=== PATIENT | male | born 1960 | race Caucasian/White ===

== ENCOUNTER → 2017-04-03 | Outpatient (CLI) | payer BC ==
--- NOTE | 2017-04-03 22:50 | MR ---
EXAMINATION TYPE: MR lumbar spine wo con DATE OF EXAM: 04/03/2017 COMPARISON: NONE HISTORY: 56-year-old male with lumbar Pain TECHNIQUE: Multiplanar, multisequence images of the lumbar spine were acquired. FINDINGS: Vertebral body heights are preserved and alignment is maintained. There is a transitional lumbosacral segment which will be denoted as a sacralized L5. Variable mild disc desiccation within the lower lumbar spine and mild facet arthropathy. Fatty matrix hemangioma within the L4 vertebral body. No suspicious bone marrow replacement. Conus medullaris is normal. At T12-L1, there is very mild posterior broad-based disc protrusion without spinal canal or neurofora bobby stenosis. A tiny right paracentral annular fissure is present. At L1-L2, no spinal canal or foraminal stenosis. At L2-L3, no spinal canal or foraminal stenosis. At L3-L4, there is minimal diffuse disc bulging. Disc material closely approaches the traversing left L4 nerve root, sagittal image 7. No significant spinal canal or foraminal stenosis. Mild facet degen erative change. At L4-L5, there is facet degenerative change and diffuse disc bulge with a small posterior annular fi ssure. Changes cause moderate right and mild left neuroforaminal stenosis. Disc material approaches a nd may abut the traversing right L5 nerve root, sagittal image 11. No spinal canal stenosis. At L5-S1, no spinal canal or foraminal stenosis. Cysts within the left kidney measuring up to 3.6 cm. No prevertebral or paravertebral soft tissue abn ormality seen. IMPRESSION: 1. Transitional lumbosacral segment is denoted as a sacralized L5. 2. Mild degenerative disc disease and facet arthropathy within the lower lumbar spine. There is a tin y right paracentral annular fissure at T12-L1 and centrally at L4-L5 3. At L4-L5, changes result in moderate right and mild left neuroforaminal stenosis with disc materia l approaching and abutting the traversing right L5 nerve root. 4. At L3-L4, disc material closely approaches the traversing left L4 nerve root without clear nerve r oot impingement. 5. No canal compromise.
== END ==
LOC: RADMRIMAIN 15:23
PROVIDERS: ATTEND Family Medicine
DX: M99.73 Connective tissue and disc stenosis of intervertebral foramina of lumbar region (principal); M51.36 Other intervertebral disc degeneration, lumbar region; M46.86 Other specified inflammatory spondylopathies, lumbar region
CPT/HCPCS: 72148

== ENCOUNTER → 2018-01-21 | Outpatient (CLI) | payer OTHER ==
--- NOTE | 2018-01-21 18:24 | CT ---
EXAMINATION TYPE: CT abdomen pelvis w con DATE OF EXAM: 01/21/2018 COMPARISON: NONE HISTORY: Diverticulitis of large intestine CT DLP: 1663.7 mGycm Automated exposure control for dose reduction was used. TECHNIQUE: Helical acquisition of images was performed from the lung bases through the pelvis. CONTRAST: Performed with Oral Contrast and with IV Contrast, patient injected with 100ml mL of Isovue 300. FINDINGS: There is mild subsegmental atelectasis at the lung bases. Heart is top normal in size. There is no pe ricardial effusion. There is no pleural effusion. Liver spleen pancreas gallbladder appear normal. Bile ducts are not dilated. There is no adrenal mass . Kidneys show satisfactory contrast opacification. There is no hydronephrosis. There are 2 cysts in the lower pole of the left kidney. The largest measures 4 cm. There is no retroperitoneal adenopathy . There is no ascites. There are a few diverticula in the descending colon and sigmoid colon. I see n o inflammatory changes to suggest diverticulitis. Bladder distends smoothly. There are prostatic calc ifications. Prostate is enlarged and measures 5 cm. The appendix appears normal. I see no bony destructive process. IMPRESSION: NO EVIDENCE OF DIVERTICULITIS. LEFT RENAL CORTICAL CYSTS. MILD TO MODERATE DIVERTICULOSIS OF THE DESCENDING COLON AND SIGMOID COLON. NORMAL APPENDIX. THERE IS PROBABLY CARDIOMEGALY.
== END | disposition home or self-care (01) ==
LOC: RADCTMAIN 16:06
PROVIDERS: ATTEND Surgery
DX: K57.30 Diverticulosis of large intestine without perforation or abscess without bleeding (principal); N28.1 Cyst of kidney, acquired
CPT/HCPCS: 74177; Q9967

== ENCOUNTER → 2018-05-06 | Outpatient (CLI) | payer OTHER ==
--- NOTE | 2018-05-06 16:34 | PN ---
PROGRESS NOTE Payam is a 57, coming in for followup regarding his SRINATH. I diagnosed this patient having obstructive sleep apnea back in 2016. At that time, the patient had moderate to severe disease with an AHI of 27. I gave him a CPAP pressure of 9 cm of water. I subsequently checked his compliancy and his compliancy was suboptimal and this was attributed to chronic allergic rhinitis and nasal congestion. At same time, he is a stomach breather and he was unable to get himself comfortable with the mask interface. Based on all this, I kept him on a CPAP pressure of 9 cm of water. I offered him the DreamWear nose mask and I lowered the pressure down to 7 cm of water. He was supposed to come back and see me in follow up. Subsequently the patient started getting bills due to his suboptimal compliance on his CPAP machine and he ended up returning back his CPAP machine and he was labeled as a failed study. Over the past 2 years he has not been using his CPAP. He has gained around 10 pounds. He has retired and he has become more symptomatic and he is requesting his CPAP machine back. He is very symptomatic, drowsy and sleepy during the day. He thinks that part of his suboptimal compliance was by the fact that he was working 16 to 17 hours a day and he had limited time to sleep and this also contributed to his low number of CPAP use. At this point in time, the patient seems to be very committed and he wants to utilize a CPAP machine back and for that reason, he is coming in for a followup. No other new complaints. He has snoring. His sleep is fragmented and he is waking up on multiple occasions throughout the night in addition to obstructive sleep apnea. He is taking [place] for chronic pain. He is still on Adderall. No other new complaints otherwise for now. REVIEW OF SYSTEMS: CONSTITUTIONAL: Positive for 10 pounds weight gain. HEENT: Chronic rhinitis, nasal congestion and postnasal drainage. CARDIOVASCULAR: No angina, no palpitations. No chest pain. PULMONARY: As above. GI: Negative for nausea, vomiting, abdominal pain or GI bleed. : Negative for dysuria, frequency, urgency. MUSCULOSKELETAL: Chronic pain. SKIN: Negative for any wounds or ulcers. NEUROLOGICAL: Has chronic drowsiness and sleepiness. PHYSICAL EXAMINATION: BP is 140/80, pulse 76, respirations 16, temperature 98.3, saturation 95% on room air. Weight is 235, height is 6-0, neck size 16.5 inches. GENERAL APPEARANCE: Calm, comfortable. Head is atraumatic, normocephalic. Neck is short, supple. Crowding of posterior pharynx. There is no goiter or neck masses. LUNGS: Diminished breath sounds bilaterally, otherwise clear. HEART: Sounds regular rhythm. Normal S1, S2. No S3. No murmurs. ABDOMEN: Soft, nontender. No organomegaly. EXTREMITIES: No edema. No cyanosis or clubbing. IMPRESSION: 1. Obstructive sleep apnea moderate in severity. AHI of 27, based on a sleep study that was done 2015. 2. Suboptimal compliancy on CPAP. The patient ended up losing his CPAP machine and the machine was returned a few months after his study. 3. Chronic hypersomnia. [place] score of 19. The patient is symptomatic at this time. This is essentially attributed to his obstructive sleep apnea. 4. Chronic pain. Currently on [place]. PLAN: The patient will be asked to come back to Sleep Center to undergo a CPAP titration. CPAP titration will be needed to order this patient and set him up with a new CPAP unit. The patient will be given a DreamWear nose mask knowing that this has been his mask of choice. The patient will be encouraged to lose weight knowing that he has gained around 10 pounds. He will see me back immediately after the CPAP titration to make further adjustments if needed and will continue monitoring his outcome and compliancy. I suspected the outcome of treatment will be better knowing that the patient is currently retired and he has more time to sleep and at the same time he seems to be much more committed knowing that he has become more symptomatic. Restart Flonase for nasal congestion and postnasal drainage. MMODL / IJN: [id number] /
== END | disposition home or self-care (01) ==
LOC: SLEEP 14:55
PROVIDERS: ATTEND Internal Medicine Critical Care Medicine
DX: G47.33 Obstructive sleep apnea (adult) (pediatric) (principal); G89.29 Other chronic pain; Z79.891 Long term (current) use of opiate analgesic; Z99.89 Dependence on other enabling machines and devices

== ENCOUNTER → 2018-10-07 | Outpatient (CLI) | payer OTHER ==
--- NOTE | 2018-10-07 17:49 | PN ---
PROGRESS NOTE DATE OF SERVICE: 10/07/2018 58-year-old gentleman has been followed in Sleep Center for treatment of obstructive sleep apnea-hypopnea syndrome. The patient came for followup visit. Recently patient had a split night sleep study which showed that he has severe obstructive sleep apnea and after that he was started on treatment with CPAP and today is his first visit after he received his CPAP unit. Right after getting his CPAP unit, patient was not able to use it because [place]. In this month at the beginning of the month, the patient had upper respiratory infection, so he also was not able to use machine for several weeks. With the machine, patient feels better and sleeps better. I discussed results of sleep study with patient in detail. I checked his CPAP unit. CPAP pressure is 9 cm of water. Last night, patient used it for 10 hours. Patient used it for 34 nights out of 90 nights and 26 out of 90 nights more than 4 hours. Average usage is 7.3 hours. Pressure in the machine is 9 cm of water. Leak is only 8 L/minute which is normal. Apnea-hypopnea index for the 3 months 3.8, and for the 1 month only 2.0, which is absolutely perfect. [place] Sleepiness Scale today is 17 still indicates some sleepiness. PHYSICAL EXAM: Patient in no distress BP 159/96, HR 77, RR 16, weight 257.4, temperature 98.1. The oropharynx, Mallampati 4. HEENT PERRLA, EOMI, evaluation of oropharynx showed tongue protrudes midline. Low position of soft palate. Neck Supple, no JVD. Thyroid is not palpable. LUNGS Clear to percussion and to auscultation. Good air exchange. No wheezing or rhonchi. HEART S1, S2 regular. No murmurs, gallops, or rubs. ABDOMEN Soft and nontender. Bowel sounds are present. No organomegaly appreciated. EXTREMITIES No clubbing or cyanosis. JAVA SWING DEVELOPER Awake, alert, and oriented X3. Cranial nerves 2 to 7 intact. There is no fasciculation or atrophy. noted. No focal deficits observed. IMPRESSION: 1. Severe obstructive sleep apnea-hypopnea syndrome; apnea-hypopnea index 42.7. Presently patient is able to use CPAP equipment during the night. 2. History of bipolar. 3. History of back pain on treatment with [place]. PLAN: 1. Patient will continue to use CPAP equipment every night for the whole night with the same regimen of the pressure. Patient promised to follow recommendation and continue treatment every night. 2. Watching and losing weight. 3. Sleep hygiene with regular time in bed for at least 8 hours. 4. No driving if feeling sleepiness. 5. We may extend trial period with a new machine for another 90 days. Thank you very much for allowing me to participate in management of your patient. Sincerely, Efrain Khoury MD, PhD, FAASM Diplomat of [place] [employer] [place] [employer] Console Manager of [facility] [place] MMODL / IJN: [id number] /
== END ==
LOC: SLEEP 16:37
PROVIDERS: ATTEND Internal Medicine
DX: G47.33 Obstructive sleep apnea (adult) (pediatric) (principal); M54.5 Low back pain; Z79.899 Other long term (current) drug therapy; Z86.59 Personal history of other mental and behavioral disorders; Z99.89 Dependence on other enabling machines and devices

== ENCOUNTER → 2019-07-13 | Outpatient (CLI) | payer OTHER ==
--- NOTE | 2019-07-13 18:45 | P.STRESS ---
- Stress Test Note Stress Test Results/Findings: Exam Performed: stress test Exam Date: 07/13/19 Reason for Exam: SOB/HTN Height: 6 ft 2 in Weight: 115.212 kg Protocol: MARIO Stage: 3 Duration of Exercise: 8:30 MINUTES Resting Heart Rate: 68 Resting Blood Pressure: 162/95 Maximum Achieved Heart Rate: 121 Maximum Achieved Blood Pressure: 216/94 85% PMHR: 137 100% PMHR: 161 METS: 10.1 Technologist Comment: Stress Test Results/Findings: This is a 58-year-old gentleman with history of hypertension and smoking being evaluated for stent symptoms of shortness of breath. Stress data: Patient EKG showed sinus rhythm with normal [place], QRS duration. Blood pressure at rest is 162/95 with pulse rate of 68. Patient walked on the Mario protocol for 8 minutes and 30 seconds achieving a maximum heart rate of 121 with a blood pressure 216/94. The test was stopped because of fatigue and tiredness and also shortness of breath. EKGs taken during and after exercise did not reveal any changes to suggest ischemia. Final impression: #1. Inconclusive stress test as patient did not achieve 85% predicted heart rate. #2. The test was stopped because of shortness of breath and fatigue #3. Patient complained of some shortness of breath and chest pain not associated with any EKG changes #4. If indicated, a Lexiscan nuclear stress test may be considered for further evaluation
--- NOTE | 2019-07-13 19:36 | ECHOF ---
Referral Reason:R07.89 atypical chest pain MEASUREMENTS -------- HEIGHT: 188.0 cm WEIGHT: 115.2 kg BP: RVIDd: 3.7 cm (< 3.3) IVSd: 1.2 cm (0.6 - 1.1) LVIDd: 5.4 cm (3.9 - 5.3) LVPWd: 1.6 cm (0.6 - 1.1) IVSs: 1.6 cm LVIDs: 3.5 cm LVPWs: 1.9 cm LA Diam: 4.2 cm (2.7 - 3.8) LAESV Index (A-L): 42.96 ml/m Ao Diam: 3.7 cm (2.0 - 3.7) AV Cusp: 2.6 cm (1.5 - 2.6) LA Diam: 4.3 cm (2.7 - 3.8) MV EXCURSION: 23.818 mm (> 18.000) MV EF SLOPE: 109 mm/s (70 - 150) EPSS: 0.4 cm MV E Jan: 0.68 m/s MV DecT: 198 ms MV A Jan: 0.90 m/s MV E/A Ratio: 0.76 AR PHT: 463 ms RAP: 5.00 mmHg RVSP: 33.46 mmHg TAPSE: 25.97 mm FINDINGS -------- Sinus rhythm. This was a technically adequate study. The left ventricular size is normal. There is mild concentric left ventricular hypertrophy. Overa ll left ventricular systolic function is normal with, an EF between 55 - 60 %. The right ventricle is normal in size. The left atrial size is normal. Normal LA size by volume 22+/-6 ml/m2. The right atrial size is normal. The aortic valve is trileaflet, and appears structurally normal. No aortic stenosis or regurgitation. Mild mitral annular calcification present. Mild mitral regurgitation is present. Mild tricuspid regurgitation present. Right ventricular systolic pressure is normal at < 35 mmHg. There is mild pulmonary hypertension. There is no pulmonic regurgitation present. The aortic root size is normal. There is no pericardial effusion. CONCLUSIONS -------- 1. Sinus rhythm. 2. This was a technically adequate study. 3. The left ventricular size is normal. 4. There is mild concentric left ventricular hypertrophy. 5. Overall left ventricular systolic function is normal with, an EF between 55 - 60 %. 6. The right ventricle is normal in size. 7. The left atrial size is normal. 8. Normal LA size by volume 22+/-6 ml/m2. 9. The right atrial size is normal. 10. The aortic valve is trileaflet, and appears structurally normal. No aortic stenosis or regurgitat ion. 11. Mild mitral annular calcification present. 12. Mild mitral regurgitation is present. 13. Mild tricuspid regurgitation present. 14. Right ventricular systolic pressure is normal at < 35 mmHg. 15. There is mild pulmonary hypertension. 16. There is no pulmonic regurgitation present. 17. The aortic root size is normal. 18. There is no pericardial effusion. LAND MANAGER: Antonina Duarte RDCS
--- NOTE | 2019-07-14 09:11 | EST ---
Stress Test Results/Findings: Exam Performed: stress test Exam Date: 07/13/19 Reason for Exam: SOB/HTN Height: 6 ft 2 in Weight: 115.212 kg Protocol: MARIO Stage: 3 Duration of Exercise: 8:30 MINUTES Resting Heart Rate: 68 Resting Blood Pressure: 162/95 Maximum Achieved Heart Rate: 121 Maximum Achieved Blood Pressure: 216/94 85% PMHR: 137 100% PMHR: 161 METS: 10.1 Technologist Comment: Stress Test Results/Findings: This is a 58-year-old gentleman with history of hypertension and smoking being evaluated for stent symptoms of shortness of breath. Stress data: Patient EKG showed sinus rhythm with normal [place], QRS duration. Blood pressure at rest is 162/95 with pulse rate of 68. Patient walked on the Mario protocol for 8 minutes and 30 seconds achieving a maximum heart rate of 121 with a blood pressure 216/94. The test was stopped because of fatigue and tiredness and also shortness of breath. EKGs taken during and after exercise did not reveal any changes to suggest ischemia. Final impression: #1. Inconclusive stress test as patient did not achieve 85% predicted heart rate. #2. The test was stopped because of shortness of breath and fatigue #3. Patient complained of some shortness of breath and chest pain not associated with any EKG changes #4. If indicated, a Lexiscan nuclear stress test may be considered for further evaluation MTDD
== END | disposition home or self-care (01) ==
LOC: RADNMMAIN 10:40
PROVIDERS: ATTEND Family Medicine
DX: I08.1 Rheumatic disorders of both mitral and tricuspid valves (principal); I27.20 Pulmonary hypertension, unspecified; R07.89 Other chest pain
CPT/HCPCS: 93017; 93306

== ENCOUNTER → 2020-09-12 | Outpatient (CLI) | payer MEDICARE ==
--- NOTE | 2020-09-12 15:20 | PN ---
PROGRESS NOTE Payam is a 58-year-old male patient, a long-time CPAP user for obstructive sleep apnea. Currently he is using his CPAP, which is a ResMed AutoSet unit set at a pressure of 9 cm of water. This is a 3 year followup for him. He is doing well. He is utilizing his machine every night. No issues with his CPAP unit whatsoever. He is averaging around 6.9 hours of CPAP use per night and his CPAP use for more than 4 hours is around 70%. His leak is at 7 L and the patient utilizing a Dream Wear under the nose medium- sized nose mask. AHI while on treatment is down to 0.9. No new onset cardiac disease. No new onset CHF or atrial fibrillation or any other neurologic or cardiovascular disease. Weight has been stable. REVIEW OF SYSTEMS: Fourteen-point review of system was done and positive findings are mentioned in history of present illness. GENERAL APPEARANCE: Calm and comfortable in no acute distress. Head is atraumatic, normocephalic. NECK: Supple. There is no JVD. No goiter or neck mass. Mallampati class 4. LUNGS: Clear to auscultation. HEART: Heart sounds are regular rate and rhythm. Normal S1, S2. No S3, no S4, no murmurs. ABDOMEN: Soft. Nontender. No organomegaly. EXTREMITIES: No edema, cyanosis or clubbing. NEUROLOGIC: The patient is awake, alert, and there is no focal neurological deficits. PSYCHIATRIC: Negative for anxiety or depression. IMPRESSION: 1. Obstructive sleep apnea, successfully treated with a CPAP pressure of 9 cm of water. Treatment has been successful and the patient has no issues. Note that the patient has severe SRINATH with an AHI of 42.7 at baseline. 2. Hypersomnia, recovered. 3. History of bipolar disorder. 4. Chronic back pain. PLAN: 1. Continue CPAP at same level of pressure which is 9 cm of water. 2. Renew supplies including a Dream Wear under the nose mask, medium size. 3. Encourage weight loss. 4. Watch the patient's sleep hygiene and maintain a regular bedtime and sleep for at least 8 hours. 5. No driving especially when feeling drowsy or sleepy. 6. See me back in the office in a few years time for followup. MMODL / IJN: [id number] /
== END | disposition home or self-care (01) ==
LOC: SLEEP 14:03
PROVIDERS: ATTEND Internal Medicine Critical Care Medicine
DX: G47.33 Obstructive sleep apnea (adult) (pediatric) (principal); G89.29 Other chronic pain; Z86.59 Personal history of other mental and behavioral disorders; Z99.89 Dependence on other enabling machines and devices

== ENCOUNTER → 2021-04-02 | Outpatient (CLI) | payer MEDICARE, OTHER ==
[2021-04-02 12:33] VITALS: BP 151/82; PULSE 63; RESP 18; TEMP 98.5
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
== END ==
LOC: PNWHC3 12:16
PROVIDERS: ATTEND Specialist
DX: M51.36 Other intervertebral disc degeneration, lumbar region (principal); M47.816 Spondylosis without myelopathy or radiculopathy, lumbar region; J44.9 Chronic obstructive pulmonary disease, unspecified; I10 Essential (primary) hypertension; M19.90 Unspecified osteoarthritis, unspecified site; F17.200 Nicotine dependence, unspecified, uncomplicated; K21.9 Gastro-esophageal reflux disease without esophagitis; Z79.899 Other long term (current) drug therapy; Z79.51 Long term (current) use of inhaled steroids
CPT/HCPCS: 99211

== ENCOUNTER 2021-04-20 07:43 | Day surgery (SDC) | payer MEDICARE, OTHER ==
[2021-04-19 09:03] VITALS: BMI 35.0
[2021-04-20 08:05] VITALS: RESP 18; TEMP 97.2
[2021-04-20] MEDS ORDERED: IOPAMIDOL M200 10 ML VIAL ONE (08:22)
[2021-04-20] MEDS ORDERED: TRIAMCINOLONE ACETONIDE 40 MG/ML 1 ML VIAL ONE (08:22)
[2021-04-20] MEDS ORDERED: ROPIVACAINE 5MG/ML 20ML VIAL ONE (08:22)
--- NOTE | 2021-04-20 08:34 | P.PCN ---
Date of Procedure: 04/20/21 Description of Procedure: PREOPERATIVE DIAGNOSIS : Lumbar spondylosis with Facet Arthropathy without myelopathy POSTOPERATIVE DIAGNOSIS: same PROCEDURE: first Diagnostic lumbar medial branch block with fluoroscopy at L3, L4, L5 [bilateral] which covers facets L4-5 and L5-S1 ANESTHESIA: Local anesthetic; Fluoroscopy was used for the procedure and images were saved in the radiology portion of the chart. Surgeon: Alfredo Haynes MD PROCEDURE INDICATION: Lumbar back pain without radiculopathy, not responsive to conservative management. PROCEDURE DESCRIPTION: the patient was seen and identified in the preop holding area , risks and benefits and possible complications of the procedure and alternatives were discussed with the patient, and the patient agreed to proceed with the procedure and signed the consent . IV was started , vital signs were monitored during the procedure and fluoroscopy was used to maximize the benefit and accuracy of the needle placement, and sedation was given to decrease patient anxiety. Patient was taken to the procedure room and placed in prone position. The lumbar region was prepped using chlorhexidineX-2. Under strict sterile technique using AP fluoroscopy the bilateral sacral ala were identified and using ipsilateral oblique fluoroscopy ,the junction of the transverse process and the superior articulating process of the L4, L5 vertebra which corresponds to the fluoroscopy image of the eye of the Dejuan dog for the medial branches were identified. Subsequently, after local infiltration of skin with lidocaine 1% 0.2 mL at each level , a 25-gauge 3.5" Quincke-type needle was placed at the junction of the base of the transverse process and the superior articular process at the appropriate level as well as the sacral ala, and the needle was advanced until the periosteum contacted, needle placement confirmed with AP and oblique fluoroscopy, 0.2 mL of Isovue 200 per level was injected which revealed no vascular uptake and after negative aspiration. I cate up 5 mL of 0.5% ropivacaine and 1 mL of 40 mg/mL kenalog and injected 1 mL of this injectate at each level and the needle subsequently removed . A total of [2 levels injected bilaterally] At the end of the procedure and the needles were removed and a bandage applied after the skin was cleaned. The patient was taken to recovery room in stable condition and monitors in the recovery room for 20-30 minutes and discharged home in stable condition after discharge criteria met and patient will follow up with repeat procedure in 2 weeks EBL: Minimal COMPLICATION: None.
--- NOTE | 2021-04-20 08:45 | FL ---
Fluoroscopy INDICATION: Pain FINDINGS: Fluoroscopy time: 5 seconds. Images obtained: 3. IMPRESSIONS: 1. Documentation of fluoroscopy.
[2021-04-20 08:50] VITALS: BP 171/73; PULSE 50
== END 2021-04-20 09:03 | disposition home or self-care (01) ==
LOC: ORPAIN 07:43
PROVIDERS: ATTEND Anesthesiology
DX: M47.816 Spondylosis without myelopathy or radiculopathy, lumbar region (principal)
CPT/HCPCS: 64493; 64494; J3301; Q9966; J2795

== ENCOUNTER → 2021-05-14 | Outpatient (CLI) | payer MEDICARE, OTHER ==
[2021-05-14 14:10] VITALS: BP 155/82; PULSE 58; RESP 18; TEMP 98.2
--- NOTE | 2021-05-14 14:23 | P.PN ---
Subjective Progress Note Date: 05/14/21 As his follow-up visits for this 60 years old male with a chronic history of severe low back pain, is diagnosed with lumbar degenerative disc disease and lumbar spondylosis with lumbar facet arthropathy, patient did complaining of severe low back pain which is increased in intensity with any movement, patient having a hard time moving around and doing any activity, he feels some weakness in his right lower extremity, he feels some numbness and tingling sensation in his right lower extremity, denies any fever or night sweats, recently we did diagnostic medial branch block lumbar area bilaterally at L3, L4, L5, she reported after the block when we tried to move him from prone position to supine position he started having severe pain which is localized in the low back area Physical Examinations : -Constitutiona : Cooperative , not in acute distress . -HEENT : nech : supple , no Lymphadenopathy , normal thyroid size . : eyes : no ptosis , no icterus, no photophobia . - neurologic : Cranial nerve II to XII intact , no focal neurological deffecit . -psychatric : alert , oriented X 3 , appropriate affect , intact judgment and insight . -Lymphatic : no Lymphadenopathy . - musculoskeltal : Lumber spine moter stegnth lower extremities ,thigh and legs 4/5 Right side , 5/5 Left side deep tendon reflexes : normal Knee Jerk , normal ankle Jerk lumber facet Loading Test =positive Right , positive Left Range of motion of the lumbar spine Flexion 30 degrees, extension 10 degrees strait leg raising test = positive at 60 degree Fabere test= positive Right , and positive LT . tenderness over the Sacroiliac joint on the Right , and Left sides Generalized tenderness in the lumbar paraspinal muscles Results MRI of the lumbar spine done in 2017 showed multilevel lumbar degenerative disc disease ,and lumbar spondylosis with facet arthropathy Assessment and plan= 1-lumbar degenerative disc disease. 2-lumbar spondylosis with lumbar facet arthropathy without myelopathy. 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 AND intervention given Measure #111: Pneumonia Vaccination: Pneumococcal vaccine NOT administered or previously given Measure #47: Advance Care Plan: Advance care planning discussed & documented, pt chose/unable to give Measure #412: Opioid Treatment Agreement: No documentation of signed opioid treatment agreement Measure #408: Opioid Therapy Follow-up Evaluation: Patient had NO f/u eval minimum every 3 months during opioid therapy Measure #317: Preventitive Care & Scrn High Bld Press & F/U: Pre-hypertensive or hypertensive BP documented, pt will f/u with PCP Measure #128: Body Mass Index (BMI) Screening & Follow-up: BMI documented ABOVE normal parameters - f/u documented Measure #131: Pain Assessment & Follow-up: Pain positive & plan documented, Follow-up scheduled Measure #431: Unhealthy Alcohol Use Preventative Care & Scrn: Patient not identified as an unhealthy alcohol user PQRS Narrative: Objective - Vital Signs Vital signs: Vital Signs Temp 98.2 F 05/14/21 14:00 Pulse 58 L 05/14/21 14:00 Resp 18 05/14/21 14:00 BP 155/82 05/14/21 14:00 Pulse Ox 93 L 05/14/21 14:00
== END ==
LOC: PNWHC3 13:49
PROVIDERS: ATTEND Specialist
DX: M51.36 Other intervertebral disc degeneration, lumbar region (principal); M47.816 Spondylosis without myelopathy or radiculopathy, lumbar region; M79.18 Myalgia, other site
CPT/HCPCS: 99211

== ENCOUNTER 2021-06-22 12:38 | Day surgery (SDC) | payer MEDICARE, OTHER ==
[2021-06-22 13:01] VITALS: TEMP 97.2
[2021-06-22] MEDS: LACTATED RINGERS 1,000 ML IV SCH ×2 (13:01→13:07)
[2021-06-22] MEDS ORDERED: methylPREDNISolone ACETATE 40 MG/ML 1 ML VIAL ONE (13:09)
[2021-06-22] MEDS ORDERED: MIDAZOLAM 2 MG/2 ML VIAL ONE (13:09)
[2021-06-22] MEDS ORDERED: ROPIVACAINE 5MG/ML 20ML VIAL ONE (13:09)
[2021-06-22] MEDS ORDERED: fentaNYL (PF) 50 MCG/ML 2 ML AMP ONE (13:09)
--- NOTE | 2021-06-22 13:35 | P.PCN ---
Date of Procedure: 06/22/21 Procedure(s) Performed: PREOPERATIVE DIAGNOSIS : 1- Lumbar spondylosis with Facet Arthropathy without myelopathy . 2- Lumber degenerative disc disease POSTOPERATIVE DIAGNOSIS: 1- Lumbar spondylosis with Facet Arthropathy without myelopathy . 2- Lumber degenerative disc disease PROCEDURE: Diagnostic bilateral L3 , L4 , and L5 medial branch block under fluoroscopy guidance(fluoroscopy images available in the radiology Department ) ( To target the facet joint between Bilateral L4-5 , and L5-S1 )#2nd ANESTHESIA:, monitered anesthesia care. EBL: Minimal COMPLICATION: None PROCEDURE INDICATION: Chronic low back pain secondary to Facet arthropathy unresponsive to conservative treatment. PROCEDURE DESCRIPTION: the patient was seen and identified in the preop holding area , risks and benefits and possible complications of the procedure and alternative were discussed with the patient, and the patient agreed to proceed with the procedure and signed the consent and vital signs monitored during the procedure and fluoroscopy was used to maximize the benefit and accuracy of the needle placement, and sedation was given to decrease patient anxiety, patient was taken to the procedure room and placed in prone position vital signs monitored in the back prepped with chlorhexidine X3 then under strict sterile technique using a right oblique fluoroscopy ,the junction of the transverse process and the superior articulating process of the right L3 , L4 , and L5 vertebra which corresponding to the fluoroscopy image of the eye of the Dejuan dog on the block side for the medial branches and subsequently , after local infiltration of skin and subcu tissuies with Ropivacaine 0.5 % , one mL at each level ,then 22-gauge Quincke-type needles , 3 needle was used , each one of them placed at the junction of the base of the transverse process and the superior articular process at the appropriate level, and the needle was advanced until the periosteum contacted, needle placement confirmed with AP oblique and lateral view and after appropriate needle placement confirmed, and after negative aspiration for heme and CSF and there was no paresthesia 1-1/2 mL of Ropivacaine 0.5% mixed with 20 mg Depo-Medrol , then half mL injected at each level after negative aspiration the needle subsequently removed and the same procedure repeated for the left side at left side at L3 , L4 and L5 levels. At the end of the procedure and the needles removed and a bandage applied after the skin was cleaned the cleaning solution patient taken to recovery room in stable condition and monitors in the recovery room for 20-30 minutes and discharged home in stable condition after discharge criteria met and patient will follow up with the pain clinic in 2-4 weeks Note = patients had 6 Lumbar Vertebra ,and the six lumbar vertebra fused with the sacral bone .
[2021-06-22 13:41] VITALS: RESP 16
[2021-06-22] MEDS ORDERED: LACTATED RINGERS 1,000 ML IV ONE (13:43)
[2021-06-22] MEDS ORDERED: IV FLUID CONTINUATION 1,000 ML IV ONE (13:43)
--- NOTE | 2021-06-22 13:45 | FL ---
EXAMINATION TYPE: FL guided pain mgmt statistic DATE OF EXAM: 06/22/2021 CLINICAL HISTORY: Low back pain. TECHNIQUE: Fluoroscopy. COMPARISON: None. FINDINGS: Fluoroscopic guidance was provided during pain relief procedure performed by Dr. Venegas . A total of 19 seconds of fluoroscopic time was utilized during the procedure and 4 spot images are acquired. Images acquired shows needle localization at several levels in the lower lumbar spine gabrielle aterally. IMPRESSION: As Above.
[2021-06-22 13:52] VITALS: BP 123/55; PULSE 44
== END 2021-06-22 14:12 ==
LOC: ORPAIN 12:38
PROVIDERS: ATTEND Specialist
DX: G89.29 Other chronic pain (principal); M47.816 Spondylosis without myelopathy or radiculopathy, lumbar region; M51.36 Other intervertebral disc degeneration, lumbar region; I10 Essential (primary) hypertension; J44.9 Chronic obstructive pulmonary disease, unspecified; F17.200 Nicotine dependence, unspecified, uncomplicated; G47.33 Obstructive sleep apnea (adult) (pediatric); K21.9 Gastro-esophageal reflux disease without esophagitis; Z79.899 Other long term (current) drug therapy
CPT/HCPCS: 64493; 64494; J2250; J1030; J3010; J2795

== ENCOUNTER → 2021-12-18 | Outpatient (CLI) | payer MEDICARE, OTHER ==
--- NOTE | 2021-12-18 16:49 | P.PN ---
Subjective Progress Note Date: 12/18/21 This is a 59-year-old male patient with known history of obstructive sleep apnea. The patient is coming in for regular check. At that during this ongoing COVID 19 pandemic, the patient had a significant amount of weight gain and the patient is currently up by around 45 pounds. He is known to have severe SRINATH with an AHI of 42.7. He was using a ResMed CPAP unit at a pressure of 9 cm of water. His complaining about his machine as a machine is acting up and it's going off in the middle of the night without any warnings. He is interested in upgrading his machine. Meanwhile, I checked the compliance data from his machine and he is extremely compliant. He is averaging around 6.5 hours of CPAP use per night and he has utilize his machine more than 4 hours 80% of the time. He is leak is in order of 1 L per minute. He is using dreamware on the nose. His AHI is down to 0.8. He has chronic back pain and the patient remains on Carroll 7.58 tablets a day. He also takes Adderall for daytime stimulation at a dose of 10 mg by mouth twice a day. He is wide and alert during the day and the patient is not having any major somnolence and sleepiness. No chest pain. No cough or sputum production overnight. No heartburn. No other new complaints otherwise. Objective - Exam the patient's blood pressure is 152/84, pulse is 82, respirations 16 and temperature 98.0 with a saturation in 96% on room air, [place]'s sleepiness scale is at 5 The patient appeared well nourished and normally developed. Vital signs as documented. Head exam is unremarkable. No scleral icterus or corneal arcus noted. Neck is without jugular venous distension, thyromegaly, or carotid bruits. Carotid upstrokes are brisk bilaterally. Lungs are clear to auscultation and percussion. Cardiac exam reveals the PMI to be normally sized and situated. Rhythm is regular. First and second heart sounds normal. No murmurs, rubs or gallops. Abdominal exam reveals normal bowel sounds, no masses, no organomegaly and no aortic enlargement. Extremities are nonedematous and both femoral and pedal pulses are normal.Examination of the skin revealed no evidence of significant rashes, suspicious appearing nevi or other concerning lesions.Neurologically, the patient is awake and alert and the patient does not have any focal neurological deficit. Cranial nerves are essentially intact. Assessment and Plan Plan: 1 severe symptomatic obstructive sleep apnea with an AHI of 42.7. Currently undergoing CPAP therapy at a pressure of 9 cm. Machine is dysfunctional and the patient is interested in updating his CPAP unit.. The patient continues to demonstrate adequate compliancy 2 obesity with interval weight gain and a current body weight is up to 276 pounds 3 hypersomnia improved with CPAP therapy and the patient is also utilizing Adderall 10 mg by mouth twice a day for increasing daytime alertness and stimulation 4 chronic back pain, maintained on Carroll 5 hypertension, under adequate control for now. No other issues with cardiac vessel complications such as CHF, CAD or congestion heart failure Plan We will order a new CPAP unit for this patient. Preferably a ResMed 11 which will be set at a pressure of 9 cm of water. We'll keep edema around the nose nasal mask. Encourage weight loss. Continue Adderall and it is being provided to the patient through his primary care physician. Overall treatment response is inadequate. Despite his weight gain, the patient has been effectively treated. No need for any pressure adjustments. We'll order new machine. If the patient is able to obtain a new CPAP unit, he'll see me back in 30-90 days for another compliancy check. We'll continue to follow.
== END ==
LOC: SLEEP 15:57
PROVIDERS: ATTEND Internal Medicine Critical Care Medicine
DX: G47.33 Obstructive sleep apnea (adult) (pediatric) (principal); E66.9 Obesity, unspecified; M54.9 Dorsalgia, unspecified; G89.29 Other chronic pain; I10 Essential (primary) hypertension; Z99.89 Dependence on other enabling machines and devices; F17.200 Nicotine dependence, unspecified, uncomplicated

== ENCOUNTER → 2023-01-30 | Outpatient (CLI) | payer MEDICARE, OTHER ==
--- NOTE | 2023-01-30 11:22 | XR ---
EXAMINATION TYPE: XR chest 2V DATE OF EXAM: 01/30/2023 11:11 AM COMPARISON: None TECHNIQUE: XR chest 2V Frontal and lateral views of the chest. CLINICAL INDICATION:Male, 62 years old with history of R06.02 SOB; FINDINGS: Lungs/Pleura: There is no evidence of pleural effusion, focal consolidation, or pneumothorax. Pulmonary vascularity: Unremarkable. Heart/mediastinum: Cardiomediastinal silhouette is unremarkable. Musculoskeletal: No acute osseous pathology. IMPRESSION: No acute cardiopulmonary disease/process.
== END | disposition home or self-care (01) ==
LOC: RADXRMAIN 10:54
PROVIDERS: ATTEND Family Medicine
DX: R06.02 Shortness of breath (principal); Z87.891 Personal history of nicotine dependence
CPT/HCPCS: 71046